=== PATIENT | male | born 1985 | race Caucasian/White ===

== ENCOUNTER 2021-10-01 17:01 | Observation (INO) | payer SELFPAY ==
[2021-10-01] MEDS ORDERED: Fentanyl 250 MCG/5 ML VIAL ONE (18:04)
[2021-10-01 18:38] LABS: SARS-CoV-2 NAA Rapid Test Not Detected (NotDetected)
[2021-10-01] MEDS ORDERED: Vancomycin 1.5 GRAM/300 ML BAG 1.5 GM in Premix Bag 1 BAG IVPB SCH (19:00)
[2021-10-01 19:12] LABS: #Eosinphils 0.2 thou/uL (0.0-0.7); #Lymphocytes 2.4 thou/uL (1.20-3.40); #Monocytes 0.9 thou/uL (0.11-0.59); #Neutrophils 6.6 thou/uL (1.40-6.50); %Basophils 0.5 % (0.0-1.0); %Eosinophils 2.3 % (0.0-10.0); %Lymphocytes 23.3 % (21.0-51.0); %Monocytes 8.6 % (0.0-10.0); %Neutrophils 65.4 % (42.0-75.0); Hemoglobin 14.7 g/dL (14.0-18.0); Mean Corpuscular HGB CONC 32.3 g/dL (32.0-36.0); Mean Corpuscular Hemoglobin 30.6 pg (27.0-31.0); Mean Corpuscular Volume 94.8 fL (78.0-98.0); Mean Platelet Volume 8.1 fL (7.4-10.4); Platelet Count 155 thou/uL (130-400); RBC Distribution Width 11.8 % (11.5-14.5); White Blood Cell (WBC) Count 10.1 thou/uL (4.8-10.8)
[2021-10-01] MEDS ORDERED: Bupivacaine PF 0.5% 30 ML VIAL ONE (20:31)
[2021-10-01] MEDS ORDERED: Bacitracin Zinc Ointment 30 gm TUBE ONE (20:31)
[2021-10-01] MEDS ORDERED: Neomycin-Polymyxin 1 ML AMP ONE (20:31)
[2021-10-01] MEDS ORDERED: Ketorolac Tromethamine 30 MG/ML VIAL ONE (21:31)
[2021-10-01] MEDS ORDERED: Dexamethasone 20 MG/5 ML VIAL ONE (21:31)
[2021-10-01] MEDS ORDERED: PROPOFOL 200 MG/20 ML VIAL ONE (21:31)
[2021-10-01] MEDS ORDERED: Ondansetron PF 4 MG/2 ML Vial ONE (21:31)
[2021-10-01] MEDS ORDERED: Lidocaine 1% PF 5 ML VIAL ONE (21:31)
[2021-10-01] MEDS ORDERED: Morphine 4 MG/ML VIAL SLOW IVP PRN (22:29)
[2021-10-01] MEDS ORDERED: HYDROcodone/Acetaminophen 5/325 mg Tablet PO PRN (22:29)
[2021-10-01] MEDS ORDERED: Acetaminophen 325 MG TAB PO PRN (22:29)
[2021-10-01] MEDS ORDERED: traMADol HCl 50 MG TAB PO PRN (22:29)
[2021-10-01] MEDS ORDERED: Promethazine HCl 25 MG/ML VIAL IM PRN ×2 (22:29→22:45)
[2021-10-01] MEDS ORDERED: Ondansetron PF 4 MG/2 ML Vial IVP PRN (22:29)
[2021-10-01] MEDS ORDERED: Meperidine HCl/PF 25 MG/ML VIAL IM PRN (22:36)
[2021-10-01] MEDS ORDERED: Ketorolac Tromethamine 30 MG/ML VIAL IVP PRN (22:36)
[2021-10-01] MEDS ORDERED: Ondansetron HCl/PF 4 MG/2 ML Vial IVP PRN (22:45)
[2021-10-01] MEDS ORDERED: HYDROmorphone 2 MG/ML VIAL SLOW IVP PRN (22:45)
[2021-10-01] MEDS ORDERED: Promethazine HCl 25 MG/ML VIAL IVPB PRN (22:45)
[2021-10-01] MEDS ORDERED: PACU-Morphine 4MG/ML VIAL SLOW IVP PRN (22:45)
[2021-10-01] MEDS: Sodium Chloride 0.9% 1,000 ML IV SCH (23:29)
[2021-10-01 23:33] VITALS: BMI 31.7
[2021-10-02 01:44] LABS: Anion Gap 13 mmol/L (10-20); BUN (Urea Nitrogen) 15 mg/dL (8.9-20.6); Calc. Creatinine Clearance 108 mL/min (70-130); Calcium 9.1 mg/dL (7.8-10.44); Carbon Dioxide 21 mmol/L (22-29); Chloride 105 mmol/L (98-107); Glucose 185 mg/dL (70-105); Potassium 4.4 mmol/L (3.5-5.1); Sodium 135 mmol/L (136-145)
[2021-10-02] MEDS: Gentamicin Sulfate 80 MG in Premix Bag 1 BAG IVPB SCH ×2 (03:05→10:58)
[2021-10-02] MEDS ORDERED: Gentamicin 80 MG/2 ML VIAL IM SCH (06:00)
[2021-10-02] MEDS: Sodium Chloride 0.9% 1,000 ML IV SCH (08:51)
[2021-10-02] MEDS ORDERED: TETANUS AND DIPHTHERIA TOX/PF 0.5 ML DISP.SYRIN IM SCH (09:00)
[2021-10-02] MEDS ORDERED: Aspirin 81 mg Enteric Coated Tablet PO SCH (09:00)
[2021-10-02] MEDS ORDERED: Vancomycin 1.5 GRAM/300 ML BAG 1.5 GM in Premix Bag 1 BAG IVPB SCH (09:00)
[2021-10-02 16:05] VITALS: BP 150/76; TEMP 98.1
== END 2021-10-02 16:10 | disposition home or self-care (01) ==
LOC: SDC 17:01 → SURG B 22:29
PROVIDERS: ADMIT Orthopaedic Surgery Hand Surgery; ATTEND Orthopaedic Surgery Hand Surgery
PROC: 0H9GXZZ Drainage of Left Hand Skin, External Approach (ICD-10-PCS; principal; 2021-10-01)
DX: L02.512 Cutaneous abscess of left hand (principal); I10 Essential (primary) hypertension; Z20.822 Contact with and (suspected) exposure to COVID-19
CPT/HCPCS: 36415; 80048; 85025; 87070; 87077; 87186; 87205; 93005; 93010; 96365; 96372; 96375; 96376; G0378; J1100; J1580; J1885; J2175; J2270; J2405; J2704; J3010; J3370; J7050; S0020; U0002

== ENCOUNTER 2021-10-05 10:58 | Outpatient (CLI) | payer SELFPAY ==
[2021-10-05 17:30] LABS: SARS-CoV-2 PCR by NAA Not Detected (NotDetected)
== END 2021-10-05 10:59 | disposition home or self-care (01) ==
LOC: LABBT 10:58
PROVIDERS: ATTEND Orthopaedic Surgery Hand Surgery
DX: Z01.812 Encounter for preprocedural laboratory examination (principal); Z20.822 Contact with and (suspected) exposure to COVID-19
CPT/HCPCS: U0003; U0005

== ENCOUNTER 2021-10-06 08:08 | Day surgery (SDC) | payer SELFPAY ==
[2021-10-05 13:46] VITALS: BMI 31.7
[2021-10-06] MEDS ORDERED: Bacitracin Zinc Ointment 30 gm TUBE ONE (08:27)
[2021-10-06] MEDS ORDERED: Bupivacaine PF 0.5% 30 ML VIAL ONE (08:27)
[2021-10-06] MEDS ORDERED: Thrombin 5000 UNITS/5 ML VIAL ONE (08:27)
[2021-10-06] MEDS ORDERED: ceFAZolin Sodium (SDC) 2 GM/100 ML BAG ONE (08:37)
[2021-10-06] MEDS ORDERED: Fentanyl 250 MCG/5 ML VIAL ONE (08:51)
[2021-10-06] MEDS ORDERED: Midazolam HCl 2 mg/2 ml Vial ONE (08:53)
[2021-10-06] MEDS ORDERED: PROPOFOL 200 MG/20 ML VIAL ONE (08:56)
[2021-10-06] MEDS ORDERED: Ondansetron PF 4 MG/2 ML Vial ONE (08:56)
[2021-10-06] MEDS ORDERED: Dexamethasone 20 MG/5 ML VIAL ONE (08:56)
[2021-10-06] MEDS ORDERED: Ketorolac Tromethamine 30 MG/ML VIAL ONE (08:56)
[2021-10-06] MEDS ORDERED: Lidocaine 1% PF 5 ML VIAL ONE (08:56)
== END 2021-10-06 11:55 | disposition home or self-care (01) ==
LOC: SDC 08:08
PROVIDERS: ATTEND Orthopaedic Surgery Hand Surgery
PROC: 0JBK0ZZ Excision of Left Hand Subcutaneous Tissue and Fascia, Open Approach (ICD-10-PCS; principal; 2021-10-06)
DX: S61.002A Unspecified open wound of left thumb without damage to nail, initial encounter (principal); I10 Essential (primary) hypertension; Z79.2 Long term (current) use of antibiotics
CPT/HCPCS: J0690; J1100; J1885; J2250; J2405; J2704; J3010; S0020